=== PATIENT | female | born 1990 | race Caucasian/White ===

== ENCOUNTER 2020-10-16 20:58 | Emergency (ER) | payer OTHER ==
--- NOTE | 2020-10-16 21:04 | Emergency Department Report ---
Blank Doc - Documentation Documentation: 6 weeks vaginal bleeding
[2020-10-16 21:33] LABS: Basophils % (Auto) 0.5 % (0.0-1.8); Eosinophils # (Auto) 0.1 K/mm3 (0.0-0.4); Eosinophils % (Auto) 1.1 % (0.0-4.3); Hematocrit 38.4 % (30.3-42.9); Hemoglobin 12.9 gm/dl (10.1-14.3); Lymphocytes # (Auto) 2.5 K/mm3 (1.2-5.4); Lymphocytes % (Auto) 27.9 % (13.4-35.0); Mean Corpuscular HGB Conc 34 % (30-34); Mean Corpuscular Volume 86 fl (79-97); Monocytes # (Auto) 0.5 K/mm3 (0.0-0.8); Monocytes % (Auto) 5.3 % (0.0-7.3); Platelet Count 251 K/mm3 (140-440); Red Blood Count 4.46 M/mm3 (3.65-5.03)
[2020-10-16 21:56] LABS: Bilirubin,Urine NEG (Negative); Blood,Urine LG (Negative); Color,Urine Red (Yellow); RBC,Urine > 182.0 /HPF (0.0-6.0); Urobilinogen,Urine < 2.0 mg/dL (<2.0)
--- NOTE | 2020-10-16 22:18 | Ultrasound Report ---
EXAMINATION: Obstetrical Ultrasound INDICATION: Vaginal bleeding. Positive test. COMPARISON: None FINDINGS: The uterus is within normal limits in size measuring 10.3 x 5.2 x 6.1 cm. The endometrial complex scot sures a maximum of 2 cm. No pole or yolk sac is identified. The bilateral adnexal regions appear within normal limits. There is a 1.6 cm right adnexal cyst. Dopp ler flow is demonstrated to both adnexal regions. No free pelvic fluid is visualized. IMPRESSION: 1. No evidence of intrauterine . Diagnostic considerations include failed or failing pregna ncy, too early to visualize or less likely ectopic . Recommend correlation with alice asher's clinical circumstances and laboratory values. Signer Name: Desiree Pardo MD Signed: 10/16/2020 10:13 PM Workstation Name: [id number]
--- NOTE | 2020-10-16 22:18 | Ultrasound Report ---
EXAMINATION: Obstetrical Ultrasound INDICATION: Vaginal bleeding. Positive test. COMPARISON: None FINDINGS: The uterus is within normal limits in size measuring 10.3 x 5.2 x 6.1 cm. The endometrial complex csot sures a maximum of 2 cm. No pole or yolk sac is identified. The bilateral adnexal regions appear within normal limits. There is a 1.6 cm right adnexal cyst. Dopp ler flow is demonstrated to both adnexal regions. No free pelvic fluid is visualized. IMPRESSION: 1. No evidence of intrauterine . Diagnostic considerations include failed or failing pregna ncy, too early to visualize or less likely ectopic . Recommend correlation with alice asher's clinical circumstances and laboratory values. Signer Name: Desiree Pardo MD Signed: 10/16/2020 10:13 PM Workstation Name: [id number]
--- NOTE | 2020-10-16 23:09 | Emergency Department Report ---
ED HPI - General Chief complaint: Vaginal Bleeding Stated complaint: 6WEEKS BLEEDING Time Seen by Provider: 10/16/20 22:38 Source: patient Mode of arrival: Ambulatory Limitations: Language Barrier - History of Present Illness Initial comments: Patient is a 30-year-old female that presents emergency room with complaints of vaginal bleeding and abdominal cramping. Patient states that her vaginal bleeding started 3 days ago. Patient dates she is 6 weeks . Patient states she is had a confirmatory hCG with an [employer]. Patient states the bleeding increased today. Patient states given the hospital because of bleeding so heavy. Patient states is also passing clots. Patient states she has a G3, . Patient's states that the abdominal cramping has resolved. Patient denies recent travel. Patient denies recent international travel. Patient denies exposure to the novel coronavirus. Patient denies sick contacts. Patient denies fever and chills. Patient denies cough. Patient denies diarrhea. Patient denies coming in contact with anybody with symptoms of the novel coronavirus. Patient's at bedside to translate and help with language barrier. MD Complaint: abdominal pain, vaginal bleeding -: Sudden, days(s) Location: pelvis Radiation: none Severity scale (0 -10): 0 Quality: cramping Consistency: now resolved Improves with: none Worsens with: none Associated symptoms: vaginal bleeding, abdominal pain Vaginal bleeding: heavy, clots :: Yes Number of weeks : 6 OB History - Current : no complications OB History - Previous Pregnancies: no complications Pre- care: followed by OB - Related Data : 3 Para: 2 Ab: 0 Allergies Allergy/AdvReac Type Severity Reaction Status Date / Time No Known Allergies Allergy Unverified 10/16/20 21:05 ED Review of Systems ROS: Stated complaint: 6WEEKS BLEEDING Other details as noted in HPI Constitutional: denies: chills, fever Eyes: denies: eye pain, eye discharge, vision change ENT: denies: ear pain, throat pain Respiratory: denies: cough, shortness of breath, wheezing Cardiovascular: denies: chest pain, palpitations Endocrine: no symptoms reported Gastrointestinal: as per HPI, abdominal pain. denies: nausea, diarrhea Genitourinary: as per HPI. denies: urgency, dysuria, discharge Musculoskeletal: denies: back pain, joint swelling, arthralgia Skin: denies: rash, lesions Neurological: denies: headache, weakness, paresthesias Psychiatric: denies: anxiety, depression Hematological/Lymphatic: denies: easy bleeding, easy bruising ED Past Medical Hx - Past Medical History Previous Medical History?: No - Surgical History Past Surgical History?: No - Family History Family history: no significant - Social History Smoking Status: Never Smoker Substance Use Type: None ED Physical Exam - General Limitations: No Limitations General appearance: alert, in no apparent distress - Head Head exam: Present: atraumatic, normocephalic - Eye Eye exam: Present: normal appearance - ENT ENT exam: Present: mucous membranes moist - Neck Neck exam: Present: normal inspection - Respiratory Respiratory exam: Present: normal lung sounds bilaterally. Absent: respiratory distress, wheezes, rales - Cardiovascular Cardiovascular Exam: Present: regular rate, normal rhythm. Absent: systolic murmur, diastolic murmur, rubs, gallop - GI/Abdominal GI/Abdominal exam: Present: soft, normal bowel sounds. Absent: distended, tenderness, guarding - Extremities Exam Extremities exam: Present: normal inspection - Back Exam Back exam: Present: normal inspection - Neurological Exam Neurological exam: Present: alert, oriented X3 - Psychiatric Psychiatric exam: Present: normal affect, normal mood - Skin Skin exam: Present: warm, dry, intact, normal color. Absent: rash ED Course Vital Signs 10/16/20 21:02 Temperature 97.9 F Pulse Rate 102 H Respiratory 18 Rate Blood Pressure 122/86 O2 Sat by Pulse 99 Oximetry - Reevaluation(s) Reevaluation #1: I discussed all results and clinical findings with patient. I discussed plan of care with patient. Patient agrees with plan of care. Patient is stable for discharge. Patient will be discharged home. Patient given discharge instructions. Patient voiced understanding of discharge instructions. Support given to the patient and the patient's . 10/16/20 23:08 ED Medical Decision Making - Lab Data Result diagrams: 10/16/20 21:09 - Radiology Data Radiology results: report reviewed EXAMINATION: Obstetrical Ultrasound INDICATION: Vaginal bleeding. Positive test. COMPARISON: None FINDINGS: The uterus is within normal limits in size measuring 10.3 x 5.2 x 6.1 cm. The endometrial complex measures a maximum of 2 cm. No pole or yolk sac is identified. The bilateral adnexal regions appear within normal limits. There is a 1.6 cm right adnexal cyst. Doppler flow is demonstrated to both adnexal regions. No free pelvic fluid is visualized. IMPRESSION: 1. No evidence of intrauterine . Diagnostic considerations include failed or failing , too early to visualize or less likely ectopic . Recommend correlation with patient's clinical circumstances and laboratory values. - Medical Decision Making Patient is a 30-year-old female presents emergency room with vaginal bleeding cramping. Patient has been on and the patient is 6 weeks per LMP by the [employer]. Patient had labs done. Patient's labs are unremarkable and patient noted to have a low beta hCG. Patient had blood on the urine due to vaginal bleeding. Patient had an ultrasound done which showed an empty uterus. Patient's clinical findings are consistent with a spontaneous miscarriage. I discussed all the results with the patient and the . Patient and given support. All questions were answered. Patient is stable for discharge. Patient will be discharged home. Critical care attestation.: If time is entered above; I have spent that time in minutes in the direct care of this critically ill patient, excluding procedure time. ED Disposition Clinical Impression: Vaginal bleeding in , Spontaneous miscarriage, Abdominal cramps Qualifiers: Weeks of gestation: less than 8 weeks Qualified Code(s): Z3A.01 - Less than 8 weeks gestation of Disposition: - TO HOME OR SELFCARE Is pt being admited?: No Does the pt Need Aspirin: No Condition: Stable Instructions: Miscarriage, Managing Loss Additional Instructions: Patient to follow-up with primary care in 2 to 3 days. Patient to follow-up with [employer] in 2 to 3 days. Patient to rest. Patient to increase water. Patient to avoid strenuous exercise or heavy lifting until cleared by [employer]. Patient to take Tylenol or ibuprofen as needed for pain. Patient to take meds as directed. Patient to return to the ER if condition worsens, changes or new symptoms arise. Patient will need serial ultrasounds and hCG checks with [employer]. Referrals: DAHLIA MC MD [Primary Care Provider] - 2-3 Days Time of Disposition: :12
[2020-10-16 23:48] VITALS: BP 133/78
== END 2020-10-16 23:48 | disposition home or self-care (01) ==
LOC: ED 20:58
DX: O03.9 Complete or unspecified spontaneous abortion without complication (principal); O26.891 Other specified pregnancy related conditions, first trimester; R10.9 Unspecified abdominal pain; Z3A.01 Less than 8 weeks gestation of pregnancy
CPT/HCPCS: 36415; 76801; 76817; 81001; 84702; 85025; 86900; 86901

== ENCOUNTER 2021-11-25 07:52 | Observation (INO) | payer OTHER, MEDICAID ==
[2021-11-25 10:14] LABS: Amorphous Crystals,Urine 1+; Bilirubin,Urine NEG (Negative); Blood,Urine MOD (Negative); Color,Urine Straw (Yellow); Mucus,Urine FEW /HPF; Protein,Urine <15 mg/dL mg/dL (Negative); Urobilinogen,Urine < 2.0 mg/dL (<2.0)
--- NOTE | 2021-11-25 11:51 | Ultrasound Report ---
LIMITED RUQ ABDOMINAL ULTRASOUND INDICATION / CLINICAL INFORMATION: RLQ pain. COMPARISON: No relevant prior imaging study available. FINDINGS: There is wall echo shadow sign, likely reflecting gallstones within a contracted gallbladder. Borderl ine gallbladder wall thickening, measuring 3 to 4 mm. Sonographic Ruvalcaba sign is reportedly positive. Partially imaged right kidney demonstrates mild right hydronephrosis, likely reflecting maternal hydr onephrosis in . IMPRESSION: 1. Wall echo shadow sign, likely reflecting gallstones within a contracted gallbladder. Borderline g allbladder wall thickening may be related to gallbladder contraction. However, sonographic Ruvalcaba sig n is reported positive. Sonographic findings are equivocal for acute cholecystitis. 2. Mild right hydronephrosis, nonspecific but most likely related to maternal hydronephrosis in preg aleida. Signer Name: Gianni Richard MD Signed: 11/25/2021 11:46 AM Workstation Name: [id number]
--- NOTE | 2021-11-25 12:07 | Ultrasound Report ---
ULTRASOUND OBSTETRIC COMPLETE INDICATION / CLINICAL INFORMATION: well being. Clinical Gestational Age (GA) in weeks, days: 20, 6 TECHNIQUE: Transabdominal. COMPARISON: None available. FINDINGS: NUMBER: Single PRESENTATION: cephalic PLACENTA: posterior and free of the os. MATERNAL ADNEXA: No significant abnormality. AMNIOTIC FLUID VOLUME: Normal. ANATOMY: organs (including the bladder, stomach, kidneys, heart, umbilical cord, diaphragm, cord inserti on, spine and intracranial structures) are visualized and show no significant abnormality with the fo llowing exception(s): None. MEASUREMENTS: - Biparietal Diameter = 4.8 cm = 20, 3 weeks, days - Head Circumference = 18.6 cm = 21 weeks, days - Abdominal Circumference = 17 cm = 22 weeks, days - Femur Length = 3.1 cm = 19, 5 weeks, days - Estimated Weight (in grams, if calculated): 385 - Heart Rate (beats per minute): 169 ADDITIONAL FINDINGS: None. PERCENTILE ESTIMATED WEIGHT (if calculated): 47 AVERAGE ULTRASOUND AGE (AUA) in weeks, days = 20, 6 IMPRESSION: 1. Single intrauterine with AUA of 20, 6 weeks, days 2. No significant sonographic abnormality. Signer Name: Nick Elder MD Signed: 11/25/2021 12:02 PM Workstation Name: [id number]
[2021-11-25 14:13] LABS: Alanine Aminotransferase 13 units/L (7-56); Albumin 3.8 g/dL (3.9-5); Blood Urea Nitrogen 11 mg/dL (7-17); Calcium 9.3 mg/dL (8.4-10.2); Hemolysis Index 22
[2021-11-25 14:20] LABS: BUN/Creatinine Ratio 28
[2021-11-25] MEDS ORDERED: LACTATED RINGERS 1,000 ML ONE (14:35)
[2021-11-25 14:39] LABS: Hematocrit 35.9 % (30.3-42.9); Hemoglobin 11.9 gm/dl (10.1-14.3); Mean Corpuscular HGB Conc 33 % (30-34); Mean Corpuscular Volume 89 fl (79-97); Platelet Count 205 K/mm3 (140-440); Red Blood Count 4.05 M/mm3 (3.65-5.03); Red Cell Distribution Width 13.5 % (13.2-15.2)
[2021-11-25] MEDS ORDERED: DOCUSATE SODIUM 100 MG CAP PO PRN (14:50)
[2021-11-25] MEDS ORDERED: ACETAMINOPHEN 325 MG TAB PO PRN (14:50)
[2021-11-25] MEDS ORDERED: diphenhydrAMINE 25 MG CAP PO PRN (14:50)
[2021-11-25] MEDS ORDERED: ONDANSETRON 4 MG/2 ML INJ IV PRN (14:54)
[2021-11-25] MEDS ORDERED: LACTATED RINGERS 1,000 ML IV SCH (15:00)
[2021-11-25] MEDS ORDERED: SODIUM CHLORIDE 0.9% 1000 ML 1,000 ML IV SCH (15:00)
--- NOTE | 2021-11-25 15:02 | Consultation ---
History of Present Illness Consult date: 11/25/21 Chief complaint: Abdominal pain, nausea, vomiting - History of present illness History of present illness: 31-year-old female, 20 weeks and 6 days , who presented to the hospital with complaints of 2 days of right upper quadrant abdominal pain, nausea and vomiting. Patient has a known history of gallstones as has been seen by me in the surgery clinic in 08/2020 and 05/2021 for evaluation of symptomatic cholelithiasis. During first visit I recommended that the patient undergo cholecystectomy however she was very reluctant and wanted to try conservative management before agreeing to cholecystectomy. Her symptoms did improve with lifestyle modification and they elected to continue observation. 2 days ago the patient started experiencing right upper quadrant abdominal pain which is sharp and does not radiate. It is moderate in severity and constant. According to her the patient was eating well until the pain started and now for the last 24 hours has not been able to tolerate clear liquids. He states that she has nausea and vomits a small amount of yellowish fluid. She is also constipated. No fevers or chills, chest pain, shortness of breath. Past History Past Medical History: other (Cholelithiasis) Past Surgical History: No surgical history Social history: no significant social history, Family history: no significant family history Medications and Allergies Allergies Allergy/AdvReac Type Severity Reaction Status Date / Time No Known Allergies Allergy Unverified 10/16/20 21:05 Home Medications Medication Instructions Recorded Confirmed Last Taken Type Nitrofurantoin [place]/M-Cryst 100 mg PO Q12HR 7 Days #14 cap 11/25/21 Unknown Rx [Macrobid CAP] Active Meds: Active Medications Sodium Chloride (Nacl 0.9% 1000 Ml) 1,000 mls @ 100 mls/hr IV DIRECT TRUDY Ondansetron HCl (Ondansetron 4 Mg/2 Ml Inj) 4 mg IV Q6H PRN PRN Reason: Nausea And Vomiting Review of Systems All systems: negative (10 point ROS performed and negative except for that listed in HPI) Exam Vital Signs Pulse Ox 94 11/25/21 08:27 Narrative exam: Gen.: Awake, alert, oriented x3. No apparent distress ENT: Trachea midline. No lymphadenopathy. No scleral icterus or conjunctival pallor CV: S1, S2 present Respiratory: No audible wheezes Abdomen: Soft, nondistended, mild tenderness to palpation in the right lateral upper abdomen. No rebound, rigidity, guarding. Gravid uterus palpated 2 fingerbreadths superior to the umbilicus Extremities: No clubbing, cyanosis, edema Results - Labs 11/25/21 Unknown 11/25/21 Unknown Abnormal lab results 11/25/21 11/25/21 Range/Units Unknown Unknown WBC 16.5 H (4.5-11.0) K/mm3 Sodium 136 L (137-145) mmol/L Carbon Dioxide 15 L (22-30) mmol/L Creatinine 0.4 L (0.6-1.2) mg/dL Albumin 3.8 L (3.9-5) g/dL Diabetes panel 11/25/21 Range/Units Unknown Sodium 136 L (137-145) mmol/L Potassium 4.0 (3.6-5.0) mmol/L Chloride 102.8 (98-107) mmol/L Carbon Dioxide 15 L (22-30) mmol/L BUN 11 (7-17) mg/dL Creatinine 0.4 L (0.6-1.2) mg/dL Glucose 91 (65-100) mg/dL Calcium 9.3 (8.4-10.2) mg/dL AST 20 (5-40) units/L ALT 13 (7-56) units/L Alkaline Phosphatase 52 (35-129) units/L Total Protein 6.8 (6.3-8.2) g/dL Albumin 3.8 L (3.9-5) g/dL Calcium panel 11/25/21 Range/Units Unknown Calcium 9.3 (8.4-10.2) mg/dL Albumin 3.8 L (3.9-5) g/dL Pituitary panel 11/25/21 Range/Units Unknown Sodium 136 L (137-145) mmol/L Potassium 4.0 (3.6-5.0) mmol/L Chloride 102.8 (98-107) mmol/L Carbon Dioxide 15 L (22-30) mmol/L BUN 11 (7-17) mg/dL Creatinine 0.4 L (0.6-1.2) mg/dL Glucose 91 (65-100) mg/dL Calcium 9.3 (8.4-10.2) mg/dL Adrenal panel 11/25/21 Range/Units Unknown Sodium 136 L (137-145) mmol/L Potassium 4.0 (3.6-5.0) mmol/L Chloride 102.8 (98-107) mmol/L Carbon Dioxide 15 L (22-30) mmol/L BUN 11 (7-17) mg/dL Creatinine 0.4 L (0.6-1.2) mg/dL Glucose 91 (65-100) mg/dL Calcium 9.3 (8.4-10.2) mg/dL Total Bilirubin 0.30 (0.1-1.2) mg/dL AST 20 (5-40) units/L ALT 13 (7-56) units/L Alkaline Phosphatase 52 (35-129) units/L Total Protein 6.8 (6.3-8.2) g/dL Albumin 3.8 L (3.9-5) g/dL - Imaging US - abdomen: report reviewed, image reviewed Assessment and Plan 31-year-old female with 1. symptomatic cholelithiasis 2. 20w 6d Ultrasound abdomen: Cholelithiasis with mild thickening of gallbladder wall, however gallbladder is contracted. No pericholecystic fluid or biliary ductal dilatation. Plan: 1. CLD-> may try to adv as artis 2. IVF 3. prn nausea and pain control 4. abx per 1' for UTI 5. Discussed management of symptomatic cholelithiasis with the patient and her especially during second trimester of . Explained that we can proceed with cholecystectomy during however there are risks associated with anesthesia in the fetus. Alternatively, we can try to manage symptoms with conservative management which would include pain medication, IV fluids, ant iemetics, and trial of clear liquids. Patient and her still appear reluctant to proceed with surgery. Will observe today and overnight for improvement in symptoms with conservative management. Patient unable to tolerate diet and pain is persistent, will need to consider cholecystectomy. They understand and agreed to the plan. Discussed with Dr. King and patient's RN. Thank you for this consultation. Please call with any questions or concerns. Evaluation and treatment of this patient was during the time of the national and state emergency arising from COVID19 coronavirus pandemic. Treatment and procedures performed meet the current and available best practice and guidelines for patient during the COVID pandemic.
--- NOTE | 2021-11-25 15:05 | History and Physical Report ---
History of Present Illness Date of examination: 11/25/21 Date of admission: 11/25/2021 Chief complaint: abdominal pain History of present illness: Patient is a at 20w6d presenting with abdominal pain. Notes it began this morning at 6 AM and is in the RUQ. Rates 7/10 on admission. Endorses associated nausea and vomiting. Notes a history of gallstones for which she has been seen by the surgeons over a year ago. Notes she was told she needed a surgery to remove her gallbladder, but did not have it done because she felt better. Patient also complains of lower back pain and difficulty with urination. Endorses movement. Denies contractions, leakage of fluid and vaginal bleeding. Past History Past Medical History: no pertinent history Past Surgical History: no surgical history Family/Genetic History: none Social history: no significant social history - Obstetrical History : 4 Para: 2 Hx # Term Pregnancies: 2 Number of Pregnancies: 0 Spontaneous Abortions: 1 Induced : 0 Number of Living Children: 2 Medications and Allergies Allergies Allergy/AdvReac Type Severity Reaction Status Date / Time No Known Allergies Allergy Unverified 10/16/20 21:05 Home Medications Medication Instructions Recorded Confirmed Last Taken Type Nitrofurantoin [place]/M-Cryst 100 mg PO Q12HR 7 Days #14 cap 11/25/21 Unknown Rx [Macrobid CAP] Active Meds: Active Medications Acetaminophen (Acetaminophen 325 Mg Tab) 650 mg PO Q4H PRN PRN Reason: Pain MILD(1-3)/Fever >100.5/NAIR Diphenhydramine HCl (Diphenhydramine 25 Mg Cap) 25 mg PO Q6H PRN PRN Reason: Itching Docusate Sodium (Docusate Sodium 100 Mg Cap) 100 mg PO Q12H PRN PRN Reason: Constipation Sodium Chloride (Nacl 0.9% 1000 Ml) 1,000 mls @ 100 mls/hr IV DIRECT TRUDY Lactated Ringer's (Lactated Ringers) 1,000 mls @ 125 mls/hr IV DIRECT TRUDY Multivitamins/Iron/Calcium ( [id number] Fumarate-Folic Acid Vit Tab) 1 each PO QDAY TRUDY Ondansetron HCl (Ondansetron 4 Mg/2 Ml Inj) 4 mg IV Q6H PRN PRN Reason: Nausea And Vomiting Review of Systems Gastrointestinal: abdominal pain, nausea, vomiting Genitourinary: dysuria - Vital Signs Vital signs: Vital Signs Pulse Ox 94 11/25/21 08:27 Temp Pulse Resp BP Pulse Ox 98.4 F 83 133/82 100 11/25/21 08:56 11/25/21 09:40 11/25/21 08:55 11/25/21 09:40 - Physical Exam Cardiovascular: Regular rate Abdomen: Positive: normal appearance, soft, other (+Ruvalcaba sign at time of U/S) Extremities: Positive: normal - Obstetrical FHR: auscultation normal Results Result Diagrams: 11/25/21 Unknown 11/25/21 Unknown Abnormal lab results 11/25/21 11/25/21 Range/Units Unknown Unknown WBC 16.5 H (4.5-11.0) K/mm3 Sodium 136 L (137-145) mmol/L Carbon Dioxide 15 L (22-30) mmol/L Creatinine 0.4 L (0.6-1.2) mg/dL Albumin 3.8 L (3.9-5) g/dL All other labs normal. Ultrasound: report reviewed Assessment and Plan Clear liquid diet Antiemetic-Zofran 4 mg IV Tylenol and [place] as needed for pain control General surgery consulted and following. Note no cholecystitis, but recommend cholecystectomy as patient symptomatic. Patient to be re-evaluated following hydration, antiemetics and pain control to determine if she will proceed with surgery FHT q shift UA indicative of cystitis, Macrobid BID for 7 days - Patient Problems (1) Biliary colic Current Visit: Yes Status: Acute (2) Cholelithiasis affecting in second trimester, antepartum Current Visit: Yes Status: Acute (3) Cystitis Current Visit: Yes Status: Acute
[2021-11-25] MEDS ORDERED: HYDROcodone/ACETAMINOPHEN 5-325 MG TAB PO PRN (15:17)
[2021-11-25] MEDS: NITROFURANTOIN MONOHYD/M-CRYST 100 MG CAP PO SCH (17:36)
--- NOTE | 2021-11-26 08:56 | Progress Note ---
Assessment and Plan 31-year-old female with 1. symptomatic cholelithiasis 2. 20w 6d Ultrasound abdomen: Cholelithiasis with mild thickening of gallbladder wall, however gallbladder is contracted. No pericholecystic fluid or biliary ductal dilatation. Plan: 1. NPO 2. IVF 3. prn nausea and pain control 4. abx per 1' for UTI As the patient continues to experience significant right upper quadrant abdominal pain, once again discussed performing cholecystectomy with the patient and her . All risks, benefits, alternatives discussed. Questions answered. They are agreeable to proceed with cholecystectomy. We will add on the OR schedule for later this afternoon. Discussed with patient's RN. Thank you for this consultation. Please call with any questions or concerns. Evaluation and treatment of this patient was during the time of the national and state emergency arising from COVID19 coronavirus pandemic. Treatment and procedures performed meet the current and available best practice and guidelines for patient during the COVID pandemic. Subjective Date of service: 11/26/21 Narrative: Patient seen and examined. at bedside. Patient continues to experience constant right upper quadrant abdominal pain. Has remained afebrile. Objective - General physical appearance Narrative Exam: Gen.: Awake, alert, oriented x3. No apparent distress ENT: Trachea midline. No lymphadenopathy. No scleral icterus or conjunctival pallor CV: S1, S2 present Respiratory: No audible wheezes Abdomen: Soft, nondistended, right upper quadrant tenderness to palpation. No rebound, rigidity, guarding Extremities: No clubbing, cyanosis, edema - Labs 11/25/21 Unknown 11/25/21 Unknown Diabetes panel 11/25/21 Range/Units Unknown Sodium 136 L (137-145) mmol/L Potassium 4.0 (3.6-5.0) mmol/L Chloride 102.8 (98-107) mmol/L Carbon Dioxide 15 L (22-30) mmol/L BUN 11 (7-17) mg/dL Creatinine 0.4 L (0.6-1.2) mg/dL Glucose 91 (65-100) mg/dL Calcium 9.3 (8.4-10.2) mg/dL AST 20 (5-40) units/L ALT 13 (7-56) units/L Alkaline Phosphatase 52 (35-129) units/L Total Protein 6.8 (6.3-8.2) g/dL Albumin 3.8 L (3.9-5) g/dL Calcium panel 11/25/21 Range/Units Unknown Calcium 9.3 (8.4-10.2) mg/dL Albumin 3.8 L (3.9-5) g/dL Pituitary panel 11/25/21 Range/Units Unknown Sodium 136 L (137-145) mmol/L Potassium 4.0 (3.6-5.0) mmol/L Chloride 102.8 (98-107) mmol/L Carbon Dioxide 15 L (22-30) mmol/L BUN 11 (7-17) mg/dL Creatinine 0.4 L (0.6-1.2) mg/dL Glucose 91 (65-100) mg/dL Calcium 9.3 (8.4-10.2) mg/dL Adrenal panel 11/25/21 Range/Units Unknown Sodium 136 L (137-145) mmol/L Potassium 4.0 (3.6-5.0) mmol/L Chloride 102.8 (98-107) mmol/L Carbon Dioxide 15 L (22-30) mmol/L BUN 11 (7-17) mg/dL Creatinine 0.4 L (0.6-1.2) mg/dL Glucose 91 (65-100) mg/dL Calcium 9.3 (8.4-10.2) mg/dL Total Bilirubin 0.30 (0.1-1.2) mg/dL AST 20 (5-40) units/L ALT 13 (7-56) units/L Alkaline Phosphatase 52 (35-129) units/L Total Protein 6.8 (6.3-8.2) g/dL Albumin 3.8 L (3.9-5) g/dL
[2021-11-26] MEDS ORDERED: BICITRA ORAL LIQD 30ML PO SCH (10:00)
[2021-11-26] MEDS ORDERED: LACTATED RINGERS 1,000 ML IV SCH ×2 (10:00→14:45)
[2021-11-26] MEDS ORDERED: PRENATAL VIT27-FE FUMARATE-FOLIC ACID VIT TAB PO SCH (10:00)
[2021-11-26] MEDS ORDERED: DOCUSATE SODIUM 100 MG CAP PO PRN (10:00)
[2021-11-26] MEDS ORDERED: ACETAMINOPHEN 325 MG TAB PO PRN ×2 (10:00→14:37)
[2021-11-26] MEDS ORDERED: ONDANSETRON 4 MG/2 ML INJ IV PRN ×2 (10:00→13:00)
[2021-11-26] MEDS: NITROFURANTOIN MONOHYD/M-CRYST 100 MG CAP PO SCH (10:18)
--- NOTE | 2021-11-26 11:52 | Anesthesia Consultation ---
Anesthesia Consult and Med Hx Date of service: 11/26/21 - Airway Anesthetic Teeth Evaluation: Good ROM Head & Neck: Adequate Mental/Hyoid Distance: Adequate Mallampati Class: Class II Intubation Access Assessment: Possibly Difficult - Pre-Operative Health Status ASA Pre-Surgery Classification: ASA3 Proposed Anesthetic Plan: General - Pre-Anesthesia Comment Pre-Anesthesia Comments: 21wks - Pulmonary Hx Smoking: No Hx Respiratory Symptoms: No - Cardiovascular System Hx Hypertension: No - Central Nervous System CVA: No - Endocrine Hx Renal Disease: No Hx Liver Disease: No Hx Insulin Dependent Diabetes: No Hx Non-Insulin Dependent Diabetes: No Hx Thyroid Disease: No - Other Systems Hx Obesity: No - Additional Comments Anesthesia Medical History Comments: No prior GA. Patient speaks Georgian and has at bedside for translation. Discussed risk of contracts/labor during or immediately postop related to intra-abdominal surgery and GETA. Patient verbalized understanding of these risks and all questions were answered.
--- NOTE | 2021-11-26 11:53 | Anesthesia Day of Surgery ---
Anesthesia Day of Surgery - Day of Surgery Patient Examined: Yes Patient H&P Reviewed: Yes Patient is NPO: Yes
[2021-11-26] MEDS ORDERED: ceFAZolin/STERILE WATER 2 GM/20 ML SYRINGE IV NR (12:00)
[2021-11-26] MEDS ORDERED: HYDROmorphone 1 MG/1 ML INJ IV PRN (12:00)
[2021-11-26] MEDS ORDERED: LIDOCAINE (1%) 10 MG/1 ML VIAL 20 ML MDV ONE (12:26)
[2021-11-26] MEDS ORDERED: BUPIVACAINE/PF (0.5%) 5 MG/1 ML 30 ML VIAL INFILTRATI ONE (12:26)
[2021-11-26] MEDS ORDERED: HYDROmorphone 1 MG/1 ML INJ ONE (13:06)
[2021-11-26] MEDS ORDERED: ROCURONIUM 50 MG/5 ML INJ IV ONE (13:07)
[2021-11-26] MEDS ORDERED: LIDOCAINE MPF (2%) 20 MG/1 ML VIAL 5 ML ONE (13:07)
[2021-11-26] MEDS ORDERED: propofoL 200 MG/20 ML VIAL IV ONE (13:07)
[2021-11-26] MEDS ORDERED: SUCCINYLCHOLINE CHLORIDE 200 MG/10 ML INJ MDV ONE (13:10)
[2021-11-26] MEDS ORDERED: BUPIVACAINE/PF (0.5%) 5 MG/1 ML 10 ML VIAL INFILTRATI ONE (14:05)
[2021-11-26] MEDS ORDERED: LIDOCAINE (1%) 10 MG/1 ML VIAL 20 ML MDV INFILTRATI ONE (14:05)
[2021-11-26] MEDS ORDERED: KETOROLAC 30 MG/1 ML INJ ONE (14:07)
[2021-11-26] MEDS ORDERED: GLYCOPYRROLATE 0.4 MG/2 ML INJ ONE (14:07)
[2021-11-26] MEDS ORDERED: ONDANSETRON 4 MG/2 ML INJ ONE (14:07)
[2021-11-26] MEDS ORDERED: NEOSTIGMINE 10MG/10 ML INJ MDV ONE (14:07)
[2021-11-26] MEDS ORDERED: LACTATED RINGERS 1,000 ML ONE (14:07)
[2021-11-26] MEDS ORDERED: SUGAMMADEX SODIUM 200 MG/2 ML VIAL IV ONE (14:14)
[2021-11-26] MEDS ORDERED: MINERAL OIL 30 ML ORAL LIQD PO PRN (14:37)
[2021-11-26] MEDS ORDERED: BUTORPHANOL 2 MG/1 ML INJ IV PRN (14:37)
--- NOTE | 2021-11-26 14:58 | Operative Report ---
Operative Report Operative Report: Date of operation: 11/26/2021 Preoperative diagnosis: Symptomatic cholelithiasis in postOperative diagnoses: Same as above Procedure performed: Laparoscopic cholecystectomy Surgeon: Jed Byrd DO Epic Manager: MD Jeff Anesthesia: Gen. endotracheal anesthesia, local Findings: Contracted gallbladder with stones Specimen: Gallbladder Estimated blood loss: <10cc Complications: None Disposition: Stable to PACU HPI an indication: 31-year-old female with a history of gallstones who presented to the emergency room with complaints of constant severe right upper quadrant abdominal pain starting 2 days prior. The patient is 21 weeks and 6 days . The patient was found to have cholelithiasis and borderline thickening of the gallbladder wall on ultrasound. Despite conservative management the patient's pain persisted and cholecystectomy was discussed. All risks, benefits, alternatives to surgery were discussed with the patient and her at the bedside. All questions were answered and they were agreeable to proceed. Consent was obtained. Procedure in detail: The patient was identified in the preoperative area and taken back to the operating room, placed on the operating room table in supine position. After anesthesia was induced, the abdomen was prepped and draped in usual sterile fashion and timeout was performed. Local anesthetic was infiltrated into all of the skin incision sites. A roslyn incision was made in the left upper quadrant at Herbert's point through which a Veress needle was inserted. The Veress needle positioning was confirmed using saline drop test and the abdomen insufflated to 15 mmHg without incident. A supraumbilical incision was made through which a 5 mm Optiview trocar was placed. The abdomen was inspected and there was no underlying injury to any of the abdominal structures. The Veress needle was identified and removed. An additional 5 mm right upper quadrant and right lateral trocar was then placed under direct visualization. A 12 mm subxiphoid trocar was placed under direct visualization. The patient was then placed into reverse Trendelberg and tilted to the left. The gallbladder was contracted. The dome was grasped and retracted cephalad and above the liver. The cystic duct and artery were carefully skeletonized. The medial and lateral peritoneal attachments to the gallbladder were dissected using a combination of blunt dissection with the [place] and hook electrocautery. The cystic duct and artery were the only 2 structures seen entering the gallbladder and the critical view was successfully obtained. 2 clips were placed on the proximal aspect of the cystic duct and 1 distally and this was transected in between the clips using EndoShears. 2 clips were placed on the proximal aspect of the cystic artery and 1 distally this was transected in between the clips using EndoShears. The gallbladder was dissected from the liver bed using electrocautery. The gallbladder was placed into a Endo Catch bag and removed from the abdomen via the 12mm port. The gallbladder fossa was then inspected and there was no identifiable bleeding or bile leakage. Hemostasis was ensured. The clips on the cystic duct and artery were visualized and intact. The patient was then placed into neutral position. The 12 mm port fascia was closed with interrupted 0 Vicryl suture using the Ambrosio Lacy device. The remaining ports were removed under direct visualization. Skin incisions were closed with 4-0 Monocryl subcuticular stitches and skin glue. All skin incisions were once again infiltrated with local anesthetic. At the end case all sponge, instrument, sharp counts were correct 2. The patient was awoken from anesthesia, extubated, and taken to PACU in stable condition.
[2021-11-26] MEDS ORDERED: DOCUSATE SODIUM 100 MG CAP PO SCH (15:00)
[2021-11-26] MEDS ORDERED: POLYETHYLENE GLYCOL 3350 17 GM POWDER PO SCH (15:00)
--- NOTE | 2021-11-26 15:43 | Post Anesthesia Evaluation ---
- Post Anesthesia Evaluation Patient Participated: Yes Airway Patent: Yes Stable Respiratory Function: Yes Nausea/Vomiting: No Temp > 96.8F: Yes Pain Manageable: Yes Adequeate Hydration: Yes Anesthesia Complications: No Other Comments: FHTs 140s measured in antepartum unit post op
[2021-11-26 23:33] VITALS: BP 111/68
[2021-11-27] MEDS ORDERED: PRENATAL VIT27-FE FUMARATE-FOLIC ACID VIT TAB PO SCH (10:00)
== END 2021-11-26 17:20 | disposition home or self-care (01) ==
LOC: TRG 07:52 → APU 07:54 → TRG 15:16 → LD 11-26 09:36
PROVIDERS: ADMIT Obstetrics & Gynecology; ATTEND Obstetrics & Gynecology
DX: O99.612 Diseases of the digestive system complicating pregnancy, second trimester (principal); Z20.822 Contact with and (suspected) exposure to COVID-19; K80.50 Calculus of bile duct without cholangitis or cholecystitis without obstruction; K80.20 Calculus of gallbladder without cholecystitis without obstruction; O23.12 Infections of bladder in pregnancy, second trimester; N30.90 Cystitis, unspecified without hematuria; Z3A.20 20 weeks gestation of pregnancy; Z79.899 Other long term (current) drug therapy; Z98.890 Other specified postprocedural states
CPT/HCPCS: 36415; 47562; 76705; 76805; 80053; 81001; 85027; 86850; 86900; 86901; 87086; 88304; 96374; G0378; J0330; J1170; J1815; J2405; J2704; J2710; J3490; J7120; U0003; J1885